=== PATIENT | male | born 2000 | race Hispanic/Latino ===

== ENCOUNTER 2022-01-16 21:28 | Emergency (ER) | payer SELFPAY ==
[2022-01-16 22:12] VITALS: BP 124/74; PULSE 44; RESP 16; TEMP 36.4; O2SAT 100
--- NOTE | 2022-01-16 22:19 | ED_ITS ---
HPI - Wound/Laceration General Chief Complaint: Wound/Laceration Stated Complaint: wound on toe Time Seen by Provider: 01/16/22 21:44 History of Present Illness HPI narrative: 21-year-old male presents the emergency room for evaluation of a right great toe pain. Patient states that he removed part of the toenail, and has since noticed swelling and pain along that side of the nailbed. Related Data Allergies Allergy/AdvReac Type Severity Reaction Status Date / Time No Known Allergies Allergy Verified 01/16/22 22:17 Review of Systems Review of Systems: CONSTITUTIONAL: Denies fever, chills, or sweats. EYES: Denies visual changes, redness, or discharge. ENT: Denies rhinorrhea, congestion, sore throat, or otalgia. CARDIOVASCULAR: Denies chest pain, palpitations, or edema. RESPIRATORY: Denies cough or dyspnea. GASTROINTESTINAL: Denies abdominal pain, nausea, vomiting, or diarrhea. GENITOURINARY: Denies dysuria or hematuria. SKIN: Denies rash or itching. MUSCULOSKELETAL: Reports right great toe pain NEUROLOGIC: Denies headache, numbness, dizziness, or weakness. PSYCHIATRIC: Denies anxiety or depression. Exam Narrative: GENERAL: Well-appearing, well-nourished, no physical limitations, and in no acute distress. HEAD: Normocephalic, atraumatic. EYES: Conjunctivae normal, PERRLA and EOMI. CHEST: Clear to auscultation. No respiratory distress. No wheezes rales or rhonchi. No tenderness. HEART: Regular rate and rhythm. No murmur heard. Normal peripheral pulses. BACK: No CVA tenderness; No cervical/thoracic/lumbar tenderness, step-offs, bony abnormality; FROM EXTREMITIES: Normal range of motion. No edema. No clubbing or cyanosis SKIN: Right great toe: Paronychia to lateral nail fold NEURO: No focal deficits. Alert and oriented x3. MAEW. CN's II-XI intact bilaterally, normal gait PSYCH: Cooperative. Normal mood and affect. Course Vital Signs Vital signs: Vital Signs Temperature 36.4 C 01/16/22 22:12 Pulse Rate 44 L 01/16/22 22:12 Respiratory Rate 16 01/16/22 22:12 Blood Pressure 124/74 01/16/22 22:12 Pulse Oximetry 100 01/16/22 22:12 Oxygen Delivery Room Air 01/16/22 22:12 Temperature 36.4 C 01/16/22 22:12 Pulse Rate 44 L 01/16/22 22:12 Respiratory Rate 16 01/16/22 22:12 Blood Pressure 124/74 01/16/22 22:12 Pulse Oximetry 100 01/16/22 22:12 Oxygen Delivery Room Air 01/16/22 22:12 Discharge Plan Discharge Clinical Impression: Paronychia due to ingrown nail Patient Disposition: Home, Self-Care Condition: Stable Instructions: Antibiotic Form, Paronychia (ED) Additional Instructions: Soak toe in warm water multiple times throughout the day. Prescriptions: New cephalexin 500 mg capsule 500 mg PO Q8H Qty: 21 0RF Follow-up/Referrals: PHYSICIAN,WINE STEWARD/STEWARDESS [Primary Care Provider] - Time of Disposition: 22:19
[2022-01-16] MEDS: CEPHALEXIN 500 MG CAPSULE PO (22:24)
== END 2022-01-16 22:45 | disposition home or self-care (01) ==
LOC: ANHED 22:35
PROVIDERS: Emergency Provider Nurse Practitioner Family
DX: L03.031 Cellulitis of right toe (principal); L60.0 Ingrowing nail
CPT/HCPCS: 99283; A9270